=== PATIENT | male | born 1990 | race Caucasian/White ===

== ENCOUNTER 2017-06-12 16:42 | Day surgery (SDC) | payer OTHER ==
[2017-06-12 16:57] LABS: URINE APPEARANCE CLEAR; URINE BILIRUBIN NEGATIVE (NEGATIVE); URINE BLOOD NEGATIVE (NEGATIVE); URINE COLOR YELLOW; URINE GLUCOSE (UA) NEGATIVE (NEGATIVE); URINE KETONE NEGATIVE (NEGATIVE); URINE NITRITE NEGATIVE (NEGATIVE); URINE PROTEIN NEGATIVE (NEGATIVE); URINE UROBILINOGEN NEGATIVE mg/dL (0.2-1.0)
[2017-06-12] MEDS ORDERED: RANITIDINE HCL 150 MG TABLET (FP) PO ONE (17:18)
[2017-06-12] MEDS ORDERED: MAG HYDROX/AL HYDROX/SIMETH 30 ML UNIT-DOSE CUP PO ONE (17:19)
--- NOTE | 2017-06-12 17:23 | PDOC ---
History of Present Illness - General History Source: Patient Exam Limitations: No Limitations - History of Present Illness Initial Comments: 06/12/17 17:37 27 y/o M with no significant PMHx presents to the ED with sudden onset of epigastric pain this morning. Patient reports the pain is severe and rates it an 8/10. He denies any alleviating factors. Patient reports to drinking 12-18 alcoholic beverages on weekends, and reports drinking heavily Monday night. He also reports tobacco use, but denies any other drug use. Denies fever, chills. Denies nausea, vomiting, diarrhea, constipation. Denies back pain, urinary complaints. Surgical History: back surgery, bilateral ORIF in lower extremities <Julee Morrow - Last Filed: 06/12/17 21:59> <Bonnie Hill - Last Filed: 06/13/17 01:35> - General Chief Complaint: Pain Stated Complaint: STOMACH PAIN Time Seen by Provider: 06/12/17 17:08 Past History <Julee Morrow - Last Filed: 06/12/17 21:59> - Suicide/Smoking/Psychosocial Hx Smoking History: Current some day smoker Number of Cigarettes Smoked Daily: 2 Information on smoking cessation initiated: No 'Breaking Loose' booklet given: 10/19/15 Hx Alcohol Use: Yes Drug/Substance Use Hx: No Substance Use Type: None <Bonnie Hill - Last Filed: 06/13/17 01:35> - Past Medical History Allergies/Adverse Reactions: Allergies Allergy/AdvReac Type Severity Reaction Status Date / Time No Known Allergies Allergy Verified 06/12/17 16:45 Home Medications: Ambulatory Orders NK [No Known Home Medication] 10/19/15 Review of Systems - Review of Systems Able to Perform ROS?: Yes Comments:: 06/12/17 17:37 CONSTITUTIONAL: Absent: fever, chills, diaphoresis, generalized weakness, malaise, loss of appetite HEENT: Absent: rhinorrhea, nasal congestion, throat pain, throat swelling, difficulty swallowing, mouth swelling, ear pain, eye pain, visual changes CARDIOVASCULAR: Absent: chest pain, syncope, palpitations, irregular heart rate , lightheadedness, peripheral edema RESPIRATORY: Absent: cough, shortness of breath, dyspnea with exertion, orthopnea, wheezing, stridor, hemoptysis GASTROINTESTINAL: (+) epigastric pain. Absent: abdominal distension, nausea, vomiting, diarrhea, constipation, melena, hematochezia GENITOURINARY: Absent: dysuria, frequency, urgency, hesitancy, hematuria, flank pain, genital pain MUSCULOSKELETAL: Absent: myalgia, arthralgia, joint swelling SKIN: Absent: rash, itching, pallor HEMATOLOGIC/IMMUNOLOGIC: Absent: easy bleeding, easy bruising, lymphadenopathy, frequent infections ENDOCRINE: Absent: unexplained weight gain, unexplained weight loss, heat intolerance, cold intolerance NEUROLOGIC: Absent: headache, focal weakness or paresthesias, dizziness, unsteady gait, seizure, mental status changes, bladder or bowel incontinence PSYCHIATRIC: Absent: anxiety, depression, suicidal or homicidal ideation, hallucinations. <Julee Morrow - Last Filed: 06/12/17 21:59> *Physical Exam - Vital Signs Last Vital Signs Temp Pulse Resp BP Pulse Ox 98.8 F 64 18 142/74 99 06/12/17 16:46 06/12/17 16:46 06/12/17 16:46 06/12/17 16:46 06/12/17 16:46 - Physical Exam Comments: 06/12/17 17:59 GENERAL: Well developed, well nourished. Awake and alert. No acute distress. HEENT: Normocephalic, atraumatic. PERRLA, EOMI. No conjunctival pallor. Sclera are non-icteric. Moist mucous membranes. Oropharynx is clear. NECK: Supple. Full ROM. No JVD. Carotid pulses 2+ and symmetric, without bruits. No thyromegaly. No lymphadenopathy. CARDIOVASCULAR: Tachycardic rate and regular rhythm. No murmurs, rubs, or gallops. Distal pulses are 2+ and symmetric. PULMONARY: No evidence of respiratory distress. Lungs clear to auscultation bilaterally. No wheezing, rales or rhonchi. ABDOMINAL: Diffuse mid abdomial tenderness from epigastric to umbilicus. Soft. Non-distended. No rebound or guarding. No organomegaly. Normoactive bowel sounds. MUSCULOSKELETAL: Normal range of motion at all joints. No bony deformities or tenderness. No CVA tenderness. EXTREMITIES: No cyanosis. No clubbing. No edema. No calf tenderness. SKIN: Warm and dry. Normal capillary refill. No rashes. No jaundice. NEUROLOGICAL: Alert, awake, appropriate. Cranial nerves 2-12 intact. No deficits to light touch and temperature in face, upper extremities and lower extremities. No motor deficits in the in face, upper extremities and lower extremities. Normoreflexic in the upper and lower extremities. Normal speech. Toes are downgoing bilaterally. Gait is normal without ataxia. PSYCHIATRIC: Cooperative. Good eye contact. Appropriate mood and affect. <Julee Morrow A - Last Filed: 06/12/17 21:59> - Vital Signs Last Vital Signs Temp Pulse Resp BP Pulse Ox 98.8 F 64 18 142/74 99 06/12/17 16:46 06/12/17 16:46 06/12/17 16:46 06/12/17 16:46 06/12/17 16:46 <Bonnie Hill - Last Filed: 06/13/17 01:35> ED Treatment Course - LABORATORY CBC & Chemistry Diagram: 06/12/17 17:32 06/12/17 17:32 - ADDITIONAL ORDERS Additional order review: Laboratory Results 06/12/17 16:50 Urine Color Yellow Urine Appearance Clear Urine pH 6.0 Ur Specific [place] 1.025 Urine Protein Negative Urine Glucose (UA) Negative Urine Ketones Negative Urine Blood Negative Urine Nitrite Negative Urine Bilirubin Negative Urine Urobilinogen Negative - RADIOLOGY Radiograph Interpretation: 06/12/17 21:59 Abdomen & Pelvis CT reported by Dr. Tyron Rios Impression: Findings are suggestive of acute appendicitis. No abscess is identified. - Medications Given in the ED: ED Medications Discontinued Medications Generic Name Dose Route Start Last Admin Trade Name Freq PRN Reason Stop Dose Admin Al Hydroxide/Mg Hydroxide 30 ml 06/12/17 17:19 06/12/17 17:30 Mylanta Oral Suspension - PO 06/12/17 17:20 30 ml ONCE ONE Administration Ranitidine HCl 300 mg 06/12/17 17:18 06/12/17 17:30 Zantac - PO 06/12/17 17:19 300 mg ONCE ONE Administration <Wayne Morrowhan A - Last Filed: 06/12/17 21:59> - LABORATORY CBC & Chemistry Diagram: 06/12/17 17:32 06/12/17 17:32 - ADDITIONAL ORDERS Additional order review: Laboratory Results 06/12/17 16:50 Urine Color Yellow Urine Appearance Clear Urine pH 6.0 Ur Specific [place] 1.025 Urine Protein Negative Urine Glucose (UA) Negative Urine Ketones Negative Urine Blood Negative Urine Nitrite Negative Urine Bilirubin Negative Urine Urobilinogen Negative <Bonnie Hill - Last Filed: 06/13/17 01:35> Medical Decision Making - Medical Decision Making 06/12/17 17:30 27-year-old male presents with epigastric pain that started suddenly this morning. Patient denies vomiting or diarrhea, fever, chills, back pain. Past medical history denies any significant past medical history. Past surgical history bilateral tib-fib fractures ORIF in 2011 after falling off a roof, back surgery 06/12/17 21:47 PE tenderness in mid abd, periumbilical pain that has been increasing since this morning pt had leukocytosis w increasing periumbilical pain ct scan reveals acute appendicits and the surgeon Dr Hernández admitted this pt 06/13/17 01:34 <Bonnie Hill - Last Filed: 06/13/17 01:35> *DC/Admit/Observation/Transfer - Attestations Scribe Attestion: 06/12/17 17:39 Documentation prepared by Julee Morrow, acting as medical record administrator for Bonnie Hill MD. <Julee Morrow - Last Filed: 06/12/17 21:59> - Discharge Dispostion Admit: Yes <Bonnie Hill - Last Filed: 06/13/17 01:35> Diagnosis at time of Disposition: Appendicitis, acute Qualifiers: Acute appendicitis type: unspecified acute appendicitis type Qualified Code(s) : K35.80 - Unspecified acute appendicitis
[2017-06-12] MEDS ORDERED: RANITIDINE HCL 150 MG TABLET (FP) ONE (17:24)
[2017-06-12] MEDS ORDERED: MAG HYDROX/AL HYDROX/SIMETH 30 ML UNIT-DOSE CUP ONE (17:25)
[2017-06-12 17:39] LABS: BASOPHIL 0.2 % (0-2.0); MCH 28.7 pg (25.7-33.7); MCHC 34.2 g/dl (32.0-35.9); MEAN PLT VOLUME 9.4 fl (7.5-11.1); PLATELET COUNT 144 K/MM3 (134-434); WHITE BLOOD COUNT 17.2 K/mm3 (4.0-10.0)
[2017-06-12] MEDS ORDERED: SODIUM CHLORIDE 1,000 ML IV STA (17:51)
[2017-06-12] MEDS ORDERED: morphine CARPU-JECT 4 MG/1 ML DISP.SYRIN IVPUSH ONE ×2 (17:51→22:26)
[2017-06-12] MEDS ORDERED: morphine CARPU-JECT 8 MG/1 ML DISP.SYRIN ONE ×2 (18:00→22:28)
[2017-06-12 18:05] LABS: ALBUMIN 4.4 g/dl (3.4-5.0); ALK PHOS 114 U/L (45-117); ANION GAP 11 (8-16); BILIRUBIN,TOTAL 0.5 mg/dL (0.2-1.0); CALCIUM 8.9 mg/dL (8.5-10.1); CO2 26 mmol/L (21-32); CREATININE 0.7 mg/dL (0.7-1.3); GLUCOSE,RANDOM 108 mg/dL (74-106); SGOT/AST 19 U/L (15-37); SGPT/ALT 27 U/L (12-78)
[2017-06-12 18:27] LABS: INR 1.08 (0.82-1.09); PROTHROMBIN TIME (PATIENT) 12.2 SEC (9.98-11.88)
[2017-06-12 18:29] LABS: ACTIVATED PTT 30.2 SECONDS (26.9-34.4)
[2017-06-12 19:46] LABS: URINE LEUK ESTERASE Negative (NEGATIVE)
[2017-06-12] MEDS ORDERED: PIPERACILLIN/TAZOB 3.375 GM 50 ML IVPB ONE ×2 (21:43→22:25)
[2017-06-12] MEDS ORDERED: DEXTROSE 5%-LACTATED RINGERS 1,000 ML IV SCH (22:15)
[2017-06-13] MEDS ORDERED: morphine CARPU-JECT 2 MG/1 ML DISP.SYRIN IVPUSH PRN ×2 (00:43→13:05)
[2017-06-13] MEDS ORDERED: LACTATED RINGERS SOLUTION 1,000 ML IV SCH ×2 (00:45→13:45)
--- NOTE | 2017-06-13 00:53 | HP ---
Admitting History and Physical - Admission Chief Complaint: periumbilical pain History of Present Illness: 27yo M with h/o bilateral LE fractures and spinal fusion s/p 3-story fall 5 years ago presents with periumbilical pain starting after breakfast this morning, not relieved by attempts to use the bathroom, and progressively getting worse until he came to ER this afternoon. He denies F/C, N/V, D/C, last BM was yesterday. Last po was breakfast - sausage/egg/cheese and OJ. In ER, he was afebrile, wbc 17, CT showed acute appendicitis with no abscess or perforation. He was given a dose of Zosyn, IVF and kept NPO. His pain is better somewhat after morphine but still there, mostly periumbilical. History Source: Patient Limitations to Obtaining History: No Limitations - Past Medical History Pulmonary: No: Asthma Musculoskeletal: No: Chronic low back pain - Past Surgical History Additional Past Surgical History: spinal fusion, R foot and L foot and lower leg surgery for fractures, s/p trauma /fall 2011 - Smoking History Smoking history: Current some day smoker Have you smoked in the past 12 months: Yes Aproximately how many cigarettes per day: 2 (on weekends, socially) - Alcohol/Substance Use Hx Alcohol Use: Yes Number of Drinks Daily: 2 (drinks weekends, 6-12 beers) History of Substance Use: reports: None - Social History Usual Living Arrangement: Yes: With Spouse, With Child ADL: Independent Occupation: works on [employer] Home Medications - Allergies Allergies/Adverse Reactions: Allergies Allergy/AdvReac Type Severity Reaction Status Date / Time No Known Allergies Allergy Verified 06/12/17 16:45 - Home Medications Home Medications: Ambulatory Orders NK [No Known Home Medication] 10/19/15 Family Disease History - Family Disease History Family History: Denies Review of Systems - Review of Systems Constitutional: denies: Chills, Fever Eyes: denies: Blurred Vision, Recent Change in Vision HENT: denies: Difficult Swallowing, Hearing Loss, Throat Pain Neck: denies: Swollen Glands, Tenderness Cardiovascular: denies: Chest Pain, Palpitations Respiratory: denies: Cough, SOB Gastrointestinal: reports: Abdominal Pain (with hpi). denies: Constipation, Diarrhea, Nausea, Vomiting Genitourinary: denies: Burning, Dysuria Musculoskeletal: denies: Back Pain, Joint Pain, Muscle Pain Integumentary: denies: Change in Color, Rash Neurological: denies: Dizziness, Headache Psychiatric: denies: Anxiety, Depression Physical Examination Vital Signs: Vital Signs Temperature 98.8 F 06/12/17 16:46 Pulse Rate 64 06/12/17 16:46 Respiratory Rate 18 06/12/17 16:46 Blood Pressure 142/74 06/12/17 16:46 O2 Sat by Pulse Oximetry (%) 99 06/12/17 16:46 Vital Signs Period Temp Pulse Resp BP Sys/[place] Pulse Ox Last 24 Hr 98.8 F 64 18 142/74 99 T 100.6 - down to normal on repeat Constitutional: Yes: Well Nourished, No Distress, Calm Eyes: Yes: Conjunctiva Clear, EOM Intact HENT: Yes: Atraumatic, Normocephalic Neck: Yes: Supple, Trachea Midline Cardiovascular: Yes: Regular Rate and Rhythm, Murmur (soft systolic) Respiratory: Yes: Regular, CTA Bilaterally Gastrointestinal: Yes: Normal Bowel Sounds, Soft, Distention (minimal), Tenderness (RLQ with some referred from LLQ and RUQ, with voluntary guarding, no rebound) ...Rectal Exam: Yes: Deferred Renal/: No: CVA Tenderness - Left, CVA Tenderness - Right Musculoskeletal: No: Back Pain, Joint Swelling Extremities: No: Cool, Cyanosis Edema: No Peripheral Pulses WNL: Yes Integumentary: Yes: Tattoos. No: Jaundice, Rash Neurological: Yes: Alert, Oriented Psychiatric: Yes: Alert, Oriented Labs: CBC, BMP 06/12/17 17:32 06/12/17 17:32 CMP Sodium 138 mmol/L (136-145) 06/12/17 17:32 Potassium 4.1 mmol/L (3.5-5.1) 06/12/17 17:32 Chloride 101 mmol/L (98-107) 06/12/17 17:32 Carbon Dioxide 26 mmol/L (21-32) 06/12/17 17:32 Anion Gap 11 (8-16) 06/12/17 17:32 BUN 10 mg/dL (7-18) 06/12/17 17:32 Creatinine 0.7 mg/dL (0.7-1.3) 06/12/17 17:32 Creat Clearance w eGFR > 60 (>60) 06/12/17 17:32 Random Glucose 108 mg/dL (74-106) H 06/12/17 17:32 Calcium 8.9 mg/dL (8.5-10.1) 06/12/17 17:32 Total Bilirubin 0.5 mg/dL (0.2-1.0) 06/12/17 17:32 AST 19 U/L (15-37) 06/12/17 17:32 ALT 27 U/L (12-78) 06/12/17 17:32 Alkaline Phosphatase 114 U/L (45-117) 06/12/17 17:32 Total Protein 8.0 g/dl (6.4-8.2) 06/12/17 17:32 Albumin 4.4 g/dl (3.4-5.0) 06/12/17 17:32 Lipase 93 U/L (73-393) 06/12/17 17:32 INR, PTT INR 1.08 (0.82-1.09) 06/12/17 18:08 Urine Test Results Urine Color Yellow 06/12/17 16:50 Urine Appearance Clear 06/12/17 16:50 Urine pH 6.0 (5.0-8.0) 06/12/17 16:50 Ur Specific [place] 1.025 (1.001-1.035) 06/12/17 16:50 Urine Protein Negative (NEGATIVE) 06/12/17 16:50 Urine Glucose (UA) Negative (NEGATIVE) 06/12/17 16:50 Urine Ketones Negative (NEGATIVE) 06/12/17 16:50 Urine Blood Negative (NEGATIVE) 06/12/17 16:50 Urine Nitrite Negative (NEGATIVE) 06/12/17 16:50 Urine Bilirubin Negative (NEGATIVE) 06/12/17 16:50 Ur Leukocyte Esterase Negative (NEGATIVE) 06/12/17 16:50 Imaging - Results Cat Scan: Report Reviewed (acute appendicitis), Image Reviewed Problem List - Problems (1) Acute appendicitis with localized peritonitis Assessment/Plan: admit 23H/satellite NPO/IVF antibiotics thru postop period pain meds prn DVT prophylaxis Discussed with patient risks, benefits and alternatives of laparoscopic possible open appendectomy, including but not limited to bleeding, infection, injury to adjacent structures, leak or injury, intraabdominal abscess, hernia, need for further procedures, ; alternatives include antibiotics, delayed or no surgery - risks of this include failure of nonoperative therapy, perforation, sepsis, recurrence, . Patient desires to proceed with operation - will take to OR in am for above. Informed consent signed for same. anticipate resuming po postop d/c home when ambulating, voiding, tolerating po, on oral pain meds Code(s): K35.3 - ACUTE APPENDICITIS WITH LOCALIZED PERITONITIS
[2017-06-13] MEDS ORDERED: PIPERACILLIN/TAZOB 3.375 GM 50 ML IVPB ONE (04:00)
[2017-06-13 09:18] VITALS: BMI 25.6
[2017-06-13] MEDS ORDERED: BUPIVACAINE HCL/PF 0.5% (5MG/ML) 10 ML VIAL ONE (10:45)
[2017-06-13] MEDS ORDERED: BENZOIN/ALOE VERA/STORAX/TOLU 58 ML BOTTLE ONE (10:45)
[2017-06-13] MEDS ORDERED: MIDAZOLAM HCL 2 MG/2 ML SINGLE DOSE VIAL ONE (10:54)
[2017-06-13] MEDS ORDERED: PROPOFOL 20 ML ONE (10:54)
[2017-06-13] MEDS ORDERED: ROCURONIUM BROMIDE 50 MG/5 ML VIAL ONE ×2 (10:55→11:51)
[2017-06-13] MEDS ORDERED: SUCCINYLCHOLINE CHLORIDE 200 MG/10 ML VIAL ONE (10:55)
[2017-06-13] MEDS ORDERED: CEFOXITIN SODIUM 1 GM IVPB ONE (10:56)
[2017-06-13] MEDS ORDERED: cefOXitin SODIUM 1 GM VIAL (RESTRICTED TO ID) IVPB ONE ×2 (11:12→11:27)
[2017-06-13] MEDS ORDERED: DEXAMETHASONE SOD PHOSPHATE 4 MG/1 ML VIAL ONE (12:19)
[2017-06-13] MEDS ORDERED: LIDOCAINE HCL/PF 2% SDV 5ML VIAL ONE (12:19)
[2017-06-13] MEDS ORDERED: LIDOCAINE HCL 2% JELLY (5 ML/TUBE) ONE (12:19)
[2017-06-13] MEDS ORDERED: KETOROLAC TROMETHAMINE 30 MG/1 ML VIAL ONE (12:19)
[2017-06-13] MEDS ORDERED: GLYCOPYRROLATE 0.2 MG/1 ML VIAL ONE ×2 (12:20→12:32)
[2017-06-13] MEDS ORDERED: NEOSTIGMINE METHYLSULFATE 0.5 MG/ML - 10 ML MDV ONE (12:32)
[2017-06-13] MEDS ORDERED: BUPIVACAINE HCL/PF (5 MG/ML) 30 ML VIAL IJ ONE (12:46)
--- NOTE | 2017-06-13 13:01 | OP ---
Operative Note - Note: Operative Date: 06/13/17 Pre-Operative Diagnosis: acute appendicitis with localized peritonitis Operation: laparoscopic appendectomy Findings: enlarged/inflamed appendix, little yellow fluid in pelvis Post-Operative Diagnosis: Same as Pre-op Surgeon: Russell Hernández Door Hanger: Randy Phillips Anesthesiologist/DIRECTOR TALENT MANAGEMENT: Rochelle Michele MD Anesthesia: General, Local (10ml 0.5% marcaine) Specimens Removed: appendix to pathology Estimated Blood Loss (mls): 5 Drains & Tubes with Location: Prasad removed at end of case Drains, Volume Out (mls): 500 (UOP) Fluid Volume Replaced (mls): 1,500 (crystalloid) Operative Report Dictated: Yes
[2017-06-13] MEDS ORDERED: ACETAMINOPHEN 325 MG TABLET (FP) PO PRN (13:02)
[2017-06-13] MEDS ORDERED: ONDANSETRON 4 MG/2 ML VIAL IVPUSH PRN ×2 (13:02→13:45)
[2017-06-13] MEDS ORDERED: IBUPROFEN 600 MG TABLET (FP) PO PRN ×2 (13:03→13:45)
[2017-06-13] MEDS ORDERED: oxyCODONE HCL 5 MG TABLET PO PRN ×2 (13:03→13:45)
[2017-06-13] MEDS ORDERED: morphine CARPU-JECT 8 MG/1 ML DISP.SYRIN IVPUSH PRN (13:45)
[2017-06-13] MEDS ORDERED: CEFOXITIN SODIUM 1 GM in DEXTROSE 5%-WATER - 100 ML IVPB ONE (16:15)
[2017-06-13] MEDS ORDERED: cefOXitin SODIUM 2 GM VIAL (RESTRICTED TO ID) IVPB ONE ×2 (17:00)
[2017-06-13] MEDS: ACETAMINOPHEN 325 MG TABLET (FP) PO PRN (21:54)
[2017-06-14] MEDS: ACETAMINOPHEN 325 MG TABLET (FP) PO PRN (06:57)
[2017-06-14 10:58] VITALS: BP 105/51; PULSE 50; TEMP 98.2
--- NOTE | 2017-06-14 11:40 | DS ---
Physical Examination Vital Signs: Vital Signs Temperature 98.2 F 06/14/17 09:00 Pulse Rate 50 L 06/14/17 09:00 Respiratory Rate 17 06/14/17 09:00 Blood Pressure 105/51 06/14/17 09:00 O2 Sat by Pulse Oximetry (%) 100 06/13/17 15:15 Vital Signs Period Temp Pulse Resp BP Sys/[place] Pulse Ox Last 24 Hr 97.7 F-98.6 F 50-90 10-20 103-138/47-71 98-100 Findings/Remarks: Pt seen and examined in room. Ambulating, tolerating diet. Voided, + BM. C/O some pain but controlled with nonnarcotic meds. No nausea or fever. Constitutional: Yes: Well Nourished, No Distress, Calm Eyes: Yes: Conjunctiva Clear, EOM Intact Cardiovascular: Yes: Regular Rate and Rhythm. No: Murmur Respiratory: Yes: Regular, CTA Bilaterally Gastrointestinal: Yes: Normal Bowel Sounds, Soft, Distention (minimal), Tenderness (mild RLQ, LUQ, also incisional mostly at umbilicus) Extremities: No: Cool, Cyanosis Integumentary: Yes: Incision (x3), Tattoos. No: Rash Wound/Incision: Yes: Steri Strips (under dressing), Dressing Dry and Intact (x3) Neurological: Yes: Alert, Oriented Labs: Discharge Summary Reason For Visit: ACUTE APPENDICITIS Current Active Problems Acute appendicitis with localized peritonitis (Acute) Procedures: Principal: laparoscopic appendectomy Hospital Course: 27yo healthy M presented to ER with <1 day of periumbilical pain migrating to RLQ with no N/V, F/C or GI symptoms. In ER, wbc was 17, CT showed acute appendicitis with no abscess or perforation. Exam was significant for RLQ pain with focal guarding. He was taken for uneventful laparoscopic appendectomy. Postop course was unremarkable. He is ambulating, voiding, tolerating po and pain is controlled with oral medications. He is d/c home to f/u in 2 weeks. Condition: Good - Instructions Diet, Activity, Other Instructions: Postoperative instructions: You had a laparoscopic cholecystectomy on 06/13/[address] Russell Hernández of [facility]. Activity: Resume your usual activities gradually, but no heavy exertion or lifting more than 10-15 pounds for 1 month. Remove dressings 48 hours after surgery; sticky tapes underneath will fall off by themselves. You may shower daily starting then, just pat the incision areas dry. No baths or swimming. Eat lightly at first, but advance to your usual diet as tolerated. Pain: For pain, you may use and alternate Tylenol (acetaminophen) and/or ibuprofen every 6 hours each as needed; this means that you can take one OR the other at 3-hour intervals. Do not take more than 4000mg of acetaminophen in a day. Take medications as prescribed or indicated on the labeling. Follow-up: Call Dr. Hernández's office at [phone] to make your postop appointment (Monday ~2 weeks after surgery). Clinic is held in the [facility] on the first floor of [facility]. Call the office if you have: * increasing pain not responsive to pain medication * fever of 101F or higher * vomiting * unusual or increasing bleeding or drainage from wounds * increasing redness or swelling at wound sites * inability to urinate Also, see your primary medical doctor within 1-2 weeks. Disposition: HOME - Home Medications Comprehensive Discharge Medication List: Ambulatory Orders Acetaminophen [Tylenol .Regular Strength -] 650 mg PO Q6H PRN #0 tablet Ibuprofen [Motrin -] 600 mg PO Q6H PRN #0 tablet 06/14/17
--- NOTE | 2017-06-15 16:12 | PATH ---
Surgical Pathology Report Patient Name: DAMIEN AYOUB [facility]. Rec. #: [id number] /Age/Gender: 1990 (Age: 27) / M Account: [id number] Location: AMBULATORY SURG Taken: 06/13/2017 Received: 06/13/2017 Reported: 06/15/2017 Physicians: Russell Hernández M.D. Specimen(s) Received APPENDIX Clinical History Acute appendicitis Final Diagnosis APPENDIX, APPENDECTOMY: ACUTE APPENDICITIS AND PERIAPPENDICITIS. Electronically Signed Kalyani Mccallum M.D. Gross Description Received in formalin, labeled "appendix," is a 7 cm. in length vermiform appendix with a stapled margin of resection and moderate attached fat. The serosa is santiago-red and smooth. Sectioning reveals a dilated lumen containing red blood. The wall of the appendix averages 0.1 cm. in thickness. Quilt Stuffer sections are submitted in one cassette. /06/13/2017 saudi06/13/2017
== END 2017-06-14 13:13 | disposition home or self-care (01) ==
LOC: JER 16:42 → JASUSAT 22:04 → JER 23:29 → J8W 06-13 15:30 → JASUSAT 06-14 13:13
PROVIDERS: ATTEND Surgery
PROC: 0DTJ4ZZ Resection of Appendix, Percutaneous Endoscopic Approach (ICD-10-PCS; principal; 2017-06-12)
DX: K35.3 Acute appendicitis with localized peritonitis (principal)
CPT/HCPCS: 36415; 74177-TC; 80053; 81003; 83690; 85025; 85610; 85730; 86850; 86900; 86901; 88304-TC; 99285-25; Q9967

== ENCOUNTER 2021-08-02 11:10 | Emergency (ER) | payer OTHER ==
[2021-08-02 11:49] VITALS: BP 129/78; PULSE 63; TEMP 98.1; BMI 27.4
[2021-08-02] MEDS ORDERED: METHOCARBAMOL 500 MG TABLET PO ONE (13:57)
[2021-08-02] MEDS ORDERED: KETOROLAC TROMETHAMINE 30 MG/1 ML VIAL IM ONE (13:57)
[2021-08-02] MEDS ORDERED: METHOCARBAMOL 500 MG TABLET ONE (13:59)
[2021-08-02] MEDS ORDERED: KETOROLAC TROMETHAMINE 30 MG/1 ML VIAL ONE (13:59)
== END 2021-08-02 15:09 | disposition home or self-care (01) ==
LOC: JER 11:10 → JERFT 11:10
PROC: 3E0233Z Introduction of Anti-inflammatory into Muscle, Percutaneous Approach (ICD-10-PCS; principal; 2021-08-02)
DX: M54.50 Low back pain, unspecified (principal)
CPT/HCPCS: 72100-TC-FY; 99283-25